=== PATIENT | male | born 1985 | race African-American/Black ===

== ENCOUNTER 2016-07-09 22:20 | Inpatient (IN) | payer SELFPAY ==
[~2016-07-09 22:20] MED LIST: CARVEDILOL6.25 M1 PO; COREG12.5 M1 PO; COZAAR25 M1 PO; HEART MED PO; HUMALOG100 UNITS/ SC; HUMULIN 70100 UNIT/2 SC; IBUPROFEN600 M1 PO; LANTUS100 UNITS/ SC; NO HOME MEDICATION XX; NORCO 5-325 TA1 EACH PO; PRINIVIL5 M1 PO; PROZAC20 M3 PO; ULTRAM50 M1 PO; [UNRECOGNIZED DRUG - REMARK] PO
[2016-07-09 22:40] LABS: BASO % 0.2 % (0-2); BASO ABSOLUTE COUNT 0.1 tho/cmm (0.0-0.2); EOS % 0.1 % (0-7); HCT-HEMATOCRIT 40.9 % (36.0-53.5); HGB-HEMOGLOBIN 13.4 gm/dl (13.5-17.0); IMMATURE GRANULOCYTES ABSOLUTE 0.56 tho/cmm (0-0.03); IMMATURE GRANULOCYTES PERCENT 2.1 % (0-0.3); LYMPH % 12.8 % (20-45); LYMPH ABSOLUTE COUNT 3.5 tho/cmm (0.8-4.5); MCH (MEAN CORPUSCULAR HGB) 28.6 pg (28.0-32.0); MCHC MEAN CORPUSCULAR HGB CONC 32.8 % (32.0-36.0); MCV (MEAN CELL VOLUME) 87.2 fl (82.0-96.0); MEAN PLATELET VOLUME 10.3 cmc (9.4-12.4); MONO % 10.5 % (0-12); MONOCYTE ABSOLUTE COUNT 2.9 tho/cmm (0.0-1.2); NEUTROPHIL ABSOLUTE COUNT 20.3 tho/cmm (1.6-8.0); NEUTROPHIL-AUTOMATED 20.3 tho/cmm (1.6-8.0); NEUTROPHILS % 74.3 % (40-80); PLATELET COUNT 319 tho/cmm (150-450); RED BLOOD COUNT 4.69 mil/cmm (4.40-5.70); RED CELL DISTRIBUTION WIDTH 12.7 % (12.4-16.4); WHITE BLOOD COUNT 27.3 tho/cmm (4.0-10.0)
[2016-07-09 22:46] LABS: KETONE-BETA (WHOLE BLOOD) 4.3 mmol/L (0.0-0.6)
[2016-07-09 22:47] LABS: GLUCOSE 838 mg/dl (65-120)
[2016-07-09 22:59] LABS: ALB/GLOB RATIO 1.1 (0.8-2.0); ALBUMIN 3.8 g/dl (3.5-5.0); ALKALINE PHOSPHATASE 203 U/L (33-138); ALT/SGPT 59 U/L (12-78); BILIRUBIN,TOTAL 0.6 mg/dl (0.0-1.5); BLOOD UREA NITROGEN 57 mg/dl (6-24); CALCIUM 8.8 mg/dl (8.5-10.5); CHLORIDE 74 mmol/l (96-110); CREATININE 1.88 mg/dl (0.60-1.30); eGFR VALUE FOR BLACK 54 mL/Min
[2016-07-09 23:01] LABS: ANION GAP 40 mmol/L (0-20); AST/SGOT 36 U/L (10-40); PHOSPHOROUS 7.8 mg/dl (2.5-4.9); POTASSIUM 5.7 mmol/L (3.7-5.1)
[2016-07-09 23:03] LABS: CARBON DIOXIDE-VENOUS 5 mmol/L (22-32); MAGNESIUM 3.4 mg/dl (1.3-2.6); SODIUM 113 mmol/L (135-145)
[2016-07-09 23:28] LABS: ARTERIAL BLD GAS O2 SATURATION 98 % (95-98); ARTERIAL PO2 162 mmHg (70-100); BICARBONATE 2 mmol/L (21-28); BLOOD GAS BASE EXCESS -29 mM/L (-/+3)
[2016-07-09 23:35] LABS: PH 7.01 Units (7.35-7.45)
[2016-07-09 23:36] LABS: ABG CO2 ARTERIAL 2 mmol/L (21-27); ARTERIAL BLOOD GAS PCO2 9 mmHg (32-45)
[2016-07-10 00:32] LABS: URINE BILIRUBIN NEGATIVE (NEG); URINE BLOOD MODERATE (NEG); URINE GLUCOSE (UA) LARGE (NEG); URINE KETONE LARGE (NEG); URINE LEUKOCYTE ESTERASE NEGATIVE (NEG); URINE NITRITE NEGATIVE (NEG); URINE PROTEIN MODERATE (NEG)
[2016-07-10 00:33] LABS: URINE APPEARANCE CLEAR; URINE COLOR PALE YELLOW
[2016-07-10 00:36] LABS: URINE EPITHELIAL CELLS 0-2 /[HPF] (0-10); URINE RBC 0-2 /[HPF] (0-5); URINE WBC 0-1 /[HPF] (0-5)
[2016-07-10 03:46] LABS: BLOOD UREA NITROGEN 56 mg/dl (6-24); CALCIUM 7.7 mg/dl (8.5-10.5); CHLORIDE 90 mmol/l (96-110); SODIUM 122 mmol/L (135-145); eGFR VALUE FOR BLACK 78 mL/Min
[2016-07-10 03:47] LABS: ANION GAP 33 mmol/L (0-20); GLUCOSE 504 mg/dL (70-110); POTASSIUM 4.5 mmol/L (3.7-5.1)
[2016-07-10 03:48] LABS: CARBON DIOXIDE-VENOUS 4 mmol/L (22-32)
[2016-07-10 05:20] LABS: HCT-HEMATOCRIT 36.5 % (36.0-53.5); HGB-HEMOGLOBIN 12.6 gm/dl (13.5-17.0); MCH (MEAN CORPUSCULAR HGB) 28.1 pg (28.0-32.0); MCHC MEAN CORPUSCULAR HGB CONC 34.5 % (32.0-36.0); MEAN PLATELET VOLUME 9.6 cmc (9.4-12.4); PLATELET COUNT 251 tho/cmm (150-450); RED BLOOD COUNT 4.48 mil/cmm (4.40-5.70); RED CELL DISTRIBUTION WIDTH 12.2 % (12.4-16.4)
[2016-07-10 05:24] LABS: MCV (MEAN CELL VOLUME) 81.5 fl (82.0-96.0)
[2016-07-10 05:33] LABS: KETONE-BETA (WHOLE BLOOD) 5.7 mmol/L (0.0-0.6)
[2016-07-10 07:03] LABS: BAND % 10 % (0-20); BAND ABSOLUTE COUNT 1.8 tho/cmm (0-2.0)
[2016-07-10 07:04] LABS: WBC MORPHOLOGY VACUOLES
[2016-07-10 07:30] LABS: BLOOD UREA NITROGEN 48 mg/dl (6-24); CHLORIDE 98 mmol/l (96-110); CREATININE 1.29 mg/dl (0.60-1.30); POTASSIUM 4.8 mmol/L (3.7-5.1); SODIUM 128 mmol/L (135-145); eGFR VALUE FOR BLACK 86 mL/Min
[2016-07-10 07:47] LABS: ANION GAP 24 mmol/L (0-20); CARBON DIOXIDE-VENOUS 11 mmol/L (22-32)
[2016-07-10 07:48] LABS: GLUCOSE 200 mg/dL (70-110)
[2016-07-10 10:51] LABS: ARTERIAL BLD GAS O2 SATURATION 97 % (95-98); BLOOD GAS BASE EXCESS -8 mM/L (-/+3); PH 7.35 Units (7.35-7.45)
[2016-07-10 10:52] LABS: ABG CO2 ARTERIAL 17 mmol/L (21-27); ARTERIAL BLOOD GAS PCO2 30 mmHg (32-45); ARTERIAL PO2 86 mmHg (70-100); BICARBONATE 16 mmol/L (21-28)
[2016-07-10 11:28] LABS: BLOOD UREA NITROGEN 39 mg/dl (6-24); CALCIUM 7.7 mg/dl (8.5-10.5); CHLORIDE 102 mmol/l (96-110); CREATININE 1.17 mg/dl (0.60-1.30); GLUCOSE 121 mg/dL (70-110); MAGNESIUM 2.3 mg/dl (1.3-2.6); POTASSIUM 5.6 mmol/L (3.7-5.1); SODIUM 132 mmol/L (135-145); eGFR VALUE FOR BLACK >90 mL/Min
[2016-07-10 11:36] LABS: ANION GAP 17 mmol/L (0-20); CARBON DIOXIDE-VENOUS 19 mmol/L (22-32)
[2016-07-10 11:37] LABS: PHOSPHOROUS 1.5 mg/dl (2.5-4.9)
[2016-07-10 15:18] LABS: ANION GAP 14 mmol/L (0-20); BLOOD UREA NITROGEN 33 mg/dl (6-24); CALCIUM 7.7 mg/dl (8.5-10.5); CARBON DIOXIDE-VENOUS 21 mmol/L (22-32); CHLORIDE 103 mmol/l (96-110); CREATININE 1.07 mg/dl (0.60-1.30); GLUCOSE 128 mg/dL (70-110); SODIUM 134 mmol/L (135-145); eGFR VALUE FOR BLACK >90 mL/Min
[2016-07-10 15:19] LABS: POTASSIUM 4.2 mmol/L (3.7-5.1)
[2016-07-10 19:19] LABS: ANION GAP 14 mmol/L (0-20); BLOOD UREA NITROGEN 27 mg/dl (6-24); CALCIUM 7.6 mg/dl (8.5-10.5); CARBON DIOXIDE-VENOUS 22 mmol/L (22-32); CHLORIDE 103 mmol/l (96-110); CREATININE 0.96 mg/dl (0.60-1.30); GLUCOSE 183 mg/dL (70-110); SODIUM 135 mmol/L (135-145); eGFR VALUE FOR BLACK >90 mL/Min
[2016-07-10 23:51] LABS: ANION GAP 12 mmol/L (0-20); BLOOD UREA NITROGEN 19 mg/dl (6-24); CALCIUM 7.9 mg/dl (8.5-10.5); CARBON DIOXIDE-VENOUS 23 mmol/L (22-32); CHLORIDE 101 mmol/l (96-110); CREATININE 0.86 mg/dl (0.60-1.30); GLUCOSE 179 mg/dL (70-110); MAGNESIUM 2.3 mg/dl (1.3-2.6); PHOSPHOROUS 1.2 mg/dl (2.5-4.9); SODIUM 132 mmol/L (135-145); eGFR VALUE FOR BLACK >90 mL/Min
[2016-07-11 03:28] LABS: ANION GAP 11 mmol/L (0-20); BLOOD UREA NITROGEN 14 mg/dl (6-24); CARBON DIOXIDE-VENOUS 25 mmol/L (22-32); CHLORIDE 101 mmol/l (96-110); CREATININE 0.87 mg/dl (0.60-1.30); GLUCOSE 188 mg/dL (70-110); POTASSIUM 3.8 mmol/L (3.7-5.1); SODIUM 133 mmol/L (135-145); eGFR VALUE FOR BLACK >90 mL/Min
[2016-07-11 07:27] LABS: BLOOD UREA NITROGEN 12 mg/dl (6-24); CALCIUM 7.9 mg/dl (8.5-10.5); CARBON DIOXIDE-VENOUS 21 mmol/L (22-32); CHLORIDE 102 mmol/l (96-110); CREATININE 0.86 mg/dl (0.60-1.30); SODIUM 132 mmol/L (135-145); eGFR VALUE FOR BLACK >90 mL/Min
[2016-07-11 07:38] LABS: ANION GAP 14 mmol/L (0-20); GLUCOSE 287 mg/dL (70-110); POTASSIUM 4.5 mmol/L (3.7-5.1)
[2016-07-11 11:34] LABS: ANION GAP 11 mmol/L (0-20); BLOOD UREA NITROGEN 10 mg/dl (6-24); CARBON DIOXIDE-VENOUS 27 mmol/L (22-32); CHLORIDE 99 mmol/l (96-110); CREATININE 0.81 mg/dl (0.60-1.30); GLUCOSE 212 mg/dL (70-110); MAGNESIUM 2.1 mg/dl (1.3-2.6); POTASSIUM 3.7 mmol/L (3.7-5.1); SODIUM 133 mmol/L (135-145); eGFR VALUE FOR BLACK >90 mL/Min
[2016-07-11 11:46] LABS: PHOSPHOROUS 0.8 mg/dl (2.5-4.9)
[2016-07-11] MEDS ORDERED: HUMULIN 70100 UNIT/2 SC (13:31)
[2016-07-11] MEDS ORDERED: DIFLUCAN100 M1 PO (13:33)
[2016-07-12 19:31] LABS: PROCALCITONIN 3.39 ng/ml (0.05-0.09)
[2017-01-13] MEDS ORDERED: HUMALOG100 UNITS/ SC (19:25)
== END 2016-07-11 15:15 | DRG 638 ==
LOC: EDMED 22:20 → EMR2 07-10 00:32 → CCU 07-10 01:25
PROVIDERS: Emergency Medicine; Internal Medicine; ADMIT Hospitalist
DX: E10.10 Type 1 diabetes mellitus with ketoacidosis without coma (principal); B37.81 Candidal esophagitis; K31.84 Gastroparesis; E10.43 Type 1 diabetes mellitus with diabetic autonomic (poly)neuropathy; Z86.718 Personal history of other venous thrombosis and embolism; I10 Essential (primary) hypertension; I25.10 Atherosclerotic heart disease of native coronary artery without angina pectoris; Z59.0 Homelessness; E86.0 Dehydration; R79.89 Other specified abnormal findings of blood chemistry; R33.9 Retention of urine, unspecified; F32.9 Major depressive disorder, single episode, unspecified; F17.210 Nicotine dependence, cigarettes, uncomplicated
CPT/HCPCS: A9577; J1650; J1815; J2405; J3480; J7030